=== PATIENT | female | born 1990 | race Caucasian/White ===

== ENCOUNTER 2023-04-09 07:46 | Outpatient (CLI) | payer BC, SELFPAY ==
--- NOTE | ~2023-04-09 | US_ITS ---
EXAMINATION: US transvaginal DATE: 04/09/2023 08:22 INDICATION: Follicle count. TECHNIQUE: Multiple transvaginal sonographic images of the pelvis were obtained. COMPARISON: None. FINDINGS: The uterus is retroverted and measures 7.5 x 4.5 x 5.8 cm. There is no free fluid in the pelvis. The endometrial complex measures 7 mm in thickness. The right ovary measures 2.2 x 1.1 x 2.9 cm. There ar e no visible follicles in right ovary. The left ovary measures 3.2 x 1.5 x 2.3 cm. There is a 10 x 10 x 10 mm follicle in left ovary. There is a 12 x 5 x 6 mm follicle in left ovary. There are no visibl e subcentimeter follicles in left ovary. There is normal vascular flow in the ovaries. IMPRESSION: 1. Two visible follicles in left ovary. Reviewed, dictated and finalized at location A. STRINGER
== END 2023-04-09 07:47 ==
DX: N97.9 Female infertility, unspecified (principal); O09.00 Supervision of pregnancy with history of infertility, unspecified trimester; E34.9 Endocrine disorder, unspecified; Z11.59 Encounter for screening for other viral diseases
CPT/HCPCS: 76830

== ENCOUNTER 2023-04-21 07:52 | Outpatient (CLI) | payer BC, SELFPAY ==
--- NOTE | ~2023-04-21 | US_ITS ---
EXAMINATION: US transvaginal DATE: 04/21/2023 08:23 INDICATION: Measure follicles. [. Comparison:Ultrasound dated 04/09/2023 TECHNIQUE: Multiple transabdominal and endovaginal sonographic images of the pelvis performed. FINDINGS: The uterus measures 8.3 x 5.5 x 6.2 cm. The endometrial complex measures 12 mm. The right ovary measures 4.1 x 1.3 x 2 cm and the left ovary measures 3.6 x 1.3 x 3.6 cm. There are n o right ovarian follicles greater than 1 cm. Left ovary contains a exophytic 1.5 cm cyst. There are a dditional follicles measuring 5 mm. There is trace free fluid in the pelvis. There are no abnormal masses seen on either side. IMPRESSION: 1. Single exophytic left ovarian cyst measures 1.5 cm. No other ovarian cyst are identified greater t garcia 1 cm. 2: Mild endometrial thickening measuring 12 mm. Reviewed, dictated and finalized at location L. GE ASSISTANT IMPRESSION: 1. Single exophytic left ovarian cyst measures 1.5 cm. No other ovarian cyst ar e identified greater than 1 cm. 2: Mild endometrial thickening measuring 12 mm.
== END 2023-04-21 07:53 ==
DX: N97.9 Female infertility, unspecified (principal); O09.00 Supervision of pregnancy with history of infertility, unspecified trimester; N97.1 Female infertility of tubal origin; E34.9 Endocrine disorder, unspecified; Z32.00 Encounter for pregnancy test, result unknown; Z3A.00 Weeks of gestation of pregnancy not specified
CPT/HCPCS: 76830

== ENCOUNTER 2023-07-09 10:15 | Outpatient (CLI) | payer BC, SELFPAY ==
--- NOTE | ~2023-07-09 | US_ITS ---
EXAMINATION: US transvaginal DATE: 07/09/2023 10:48 INDICATION: Female infertility, unspecified. TECHNIQUE: Multiple transvaginal sonographic images of the pelvis were obtained. COMPARISON: Ultrasound 04/21/2023 FINDINGS: The uterus measures 8.5 x 4.2 x 5.3 cm. There is no free fluid in the pelvis. The endometrial complex measures 5 mm in thickness. The endometrium is isoechoic to the surrounding myometrium. The right ov esau measures 3.1 x 1.4 x 2.5 cm. The left ovary measures 2.3 x 1.7 x 2.1 cm. There is normal vascular flow in the ovaries. There are 5 visible follicles in right ovary measuring up to 7 mm. There is a 1 mm follicle in left ovary. IMPRESSION: 1. 5 visible right ovarian follicles and 1 visible left ovarian follicle. 2. Endometrium isoechoic to surrounding myometrium (pattern B). Reviewed, dictated and finalized at location A. JAVA PROGRAMMER
== END 2023-07-09 10:16 ==
DX: N97.9 Female infertility, unspecified (principal); N97.1 Female infertility of tubal origin; E34.9 Endocrine disorder, unspecified; O09.00 Supervision of pregnancy with history of infertility, unspecified trimester; Z3A.00 Weeks of gestation of pregnancy not specified
CPT/HCPCS: 76830

== ENCOUNTER 2023-07-20 09:44 | Outpatient (CLI) | payer BC, SELFPAY ==
--- NOTE | ~2023-07-20 | US_ITS ---
EXAMINATION: US transvaginal DATE: 07/20/2023 10:11 INDICATION: Female infertility, unspecified. TECHNIQUE: Multiple transvaginal sonographic images of the pelvis were obtained. COMPARISON: ultrasound 07/09/23 FINDINGS: TRANSABDOMINAL ULTRASOUND: The uterus is retroverted and retroflexed. The uterus measures 8.9 x 5.4 x 7.0 cm. There is no free f luid in the pelvis. TRANSVAGINAL ULTRASOUND: The endometrial complex measures 14 mm in thickness. The endometrium is characterized by a hypoechoic endometrium with well-defined hyperechoic outer mabry and a central echogenic line (pattern A). The right ovary measures 2.7 x 1.6 x 3.0 cm. Right ovary demonstrates 6 mm, 6 mm, 5 mm, and 6 mm follicle s. The left ovary measures 3.5 x 1.4 x 2.4 cm. Left ovary demonstrates 13 mm and 6 mm follicles. Ther e is normal vascular flow in the ovaries. IMPRESSION: 1. 4 visible right ovarian follicles and 2 visible left ovarian follicles. 2. Endometrium pattern A. Reviewed, dictated and finalized at location A. FORCING METAL WORKER
== END 2023-07-20 09:45 ==
DX: N97.9 Female infertility, unspecified (principal); O09.00 Supervision of pregnancy with history of infertility, unspecified trimester; N97.1 Female infertility of tubal origin; E34.9 Endocrine disorder, unspecified; Z11.59 Encounter for screening for other viral diseases
CPT/HCPCS: 76830

== ENCOUNTER 2023-08-24 08:21 | Outpatient (CLI) | payer BC, SELFPAY ==
--- NOTE | ~2023-08-24 | US_ITS ---
Pelvic ultrasound. Clinical History: Infertility Technique: Realtime transvaginal scanning of the pelvis was performed. Color flow Doppler and Doppler spectral analysis were performed. Findings: The uterus is retroverted, and contains an intrauterine gestational sac. Small subchronic h emorrhage present. [place]-rump length of 8 mm corresponds to an estimated gestational age of 6 weeks 5 days. heart rate is 134 bpm. Neither ovary seen. No adnexal mass seen. There is no evidence of free fluid in the cul de sac. Impression: Live intrauterine gestation with estimated gestational age of 6 weeks 5 days. heart rate is 134 bpm. Small subchorionic hemorrhage. Sonographic ALEXANDREA is 04/13/2024. Reviewed, dictated and finalized at location M. Impression: Live intrauterine gestation with estimated gestational age of 6 weeks 5 days. F etal heart rate is 134 bpm. Small subchorionic hemorrhage. Sonographic ALEXANDREA is 04/13/2024.
== END 2023-08-24 08:22 ==
DX: Z34.91 Encounter for supervision of normal pregnancy, unspecified, first trimester (principal); Z3A.01 Less than 8 weeks gestation of pregnancy; N97.9 Female infertility, unspecified; N97.1 Female infertility of tubal origin; D25.9 Leiomyoma of uterus, unspecified
CPT/HCPCS: 76817

== ENCOUNTER 2023-09-07 10:17 | Outpatient (CLI) | payer BC, SELFPAY ==
--- NOTE | ~2023-09-07 | US_ITS ---
EXAMINATION: US OB transvaginal DATE: 09/07/2023 11:44 INDICATION: Female infertility. TECHNIQUE: Real-time transabdominal and transvaginal pelvic ultrasound was performed. COMPARISON: ultrasound 08/24/23 FINDINGS: TRANSABDOMINAL ULTRASOUND: The uterus measures 8.6 x 7.3 x 8.6 cm. TRANSVAGINAL ULTRASOUND: There is an intrauterine gestational sac. A yolk sac is identified. The fet al crown rump length measures 2.1 cm, which correlates with an estimated gestational age of 8 weeks a nd 5 day(s) (+/-) 5 day(s). heart motion is identified measuring 178 beats per minute (bpm) by M-mode Doppler. There is no subchorionic hematoma. The ovaries are not visualized. There is no free f luid in the pelvis. IMPRESSION: 1. Single living intrauterine gestation with estimated date of delivery of 04/13/2024 based on the u ltrasound from 08/24/2023. Reviewed, dictated and finalized at location E. IMPRESSION: 1. Single living intrauterine gestation with estimated date of delivery of based on the ultrasound from 08/24/2023.
== END 2023-09-07 10:18 ==
DX: N97.9 Female infertility, unspecified (principal); O09.00 Supervision of pregnancy with history of infertility, unspecified trimester; E34.9 Endocrine disorder, unspecified; Z11.59 Encounter for screening for other viral diseases; Z3A.00 Weeks of gestation of pregnancy not specified
CPT/HCPCS: 76817